=== PATIENT | female | born 1980 | race Caucasian/White ===

== ENCOUNTER → 2024-09-07 14:12 | Outpatient (REF) | payer OTHER, SELFPAY | LOC: WDC 14:12 | PROVIDERS: ATTENDING PHYSICIAN Nurse Practitioner | DX: Z12.31 Encounter for screening mammogram for malignant neoplasm of breast (principal) | CPT/HCPCS: 77063; 77067 ==

== ENCOUNTER → 2024-09-16 09:20 | Outpatient (REF) | payer OTHER, SELFPAY | LOC: WDC 09:20 | PROVIDERS: ATTENDING PHYSICIAN Nurse Practitioner | DX: R92.8 Other abnormal and inconclusive findings on diagnostic imaging of breast (principal) | CPT/HCPCS: 76642 ==

== ENCOUNTER 2025-05-08 19:19 | Emergency (ER) | payer OTHER, SELFPAY ==
[2025-05-08 19:24] VITALS: BP 152/99
[2025-05-08 19:57] LABS: Hematocrit 38.6 % (37.0-47.0); Hemoglobin 13.6 g/dL (12.0-16.0); Mean Corp Hgb Conc. 35.2 g/dL (33.0-37.0); Mean Corpuscular Volume 92.1 fL (81.0-99.0); Nucleated Red Blood Cells % 0 %; Platelet Count 146 10^3/uL (130-400); Red Cell Dist. Width 12.2 % (11.5-14.5)
[2025-05-08 20:14] LABS: HCG, Serum Qualitative Screen Negative
[2025-05-08 20:23] LABS: ALT (SGPT) 19 U/L (0-35); AST (SGOT) 20 U/L (14-36); Albumin 4.6 g/dl (3.5-5.0); Alkaline Phosphatase 49 U/L (38-126); Blood Urea Nitrogen 7 mg/dl (7-17); Calcium 8.9 mg/dl (8.4-10.2); Carbon Dioxide 22 mmol/L (22-30); Chloride 108 mmol/L (98-107); Glucose 101 mg/dl (70-99); Lipase 23 U/L (23-300); Potassium 3.9 mmol/L (3.5-5.1); Sodium 137 mmol/L (135-145); Total Protein 7.1 g/dl (6.3-8.2); eGFR > 60.00
[2025-05-08 20:27] LABS: Troponin I < 0.012 ng/ml
[2025-05-08 22:23] VITALS: BP 129/86; BMI 26.1
[2025-05-08] MEDS: MAALOX 30 PO (23:51)
[2025-05-09] VITALS: BP 136/86
--- NOTE | 2025-05-09 00:21 | ED.GENMED ---
History of Present Illness
General
Chief Complaint: Chest Problem
Source: patient
Exam Limitations: none
Time Seen by Provider: 05/08/25 23:16
Nursing documentation reviewed up to this point in time: agreed with
History of Present Illness
History of Present Illness:
This is a 45-year-old woman with history of GERD, IBS with diarrhea, anxiety. Previous colonoscopy with Dr. Merino November 2018 due to persistent diarrhea. Overall unremarkable. Prescribed a 2-week course of Xifaxan. Patient states her irritable
bowel such as diarrhea has been fairly well-controlled with a few sporadic brief episodes.
Last night however around 2 AM she developed chills, aches along with recurrent diarrhea that continued throughout the night. She also noted nausea with a few episodes of dry heaves. She did take a dose of Compazine with improvement in nausea but
continued with nonbloody diarrhea throughout the night to this morning. With nausea and dry heaves she developed substernal chest pain intermittently sharp and stabbing in nature, intermittently radiating to her back as well as to her jaw. Chest
pain is worse with eating and drinking and patient admits that she has been hesitant to eat anything today, she has been attempting to keep up with her clear liquids. She has not had a fever nor chills.
No close contacts with similar symptoms. No recent antibiotic use.
She was evaluated by her PCP today and was prescribed Prilosec as well as hyoscyamine.
She has continued with chest discomfort, again worse when she swallows, worse with swallowing pills but no choking nor gagging.
Diarrhea has resolved since this morning.
Past History
Past History
ED Past Medical History: GERD, Psychiatric and Other (Cervical disc disease; irritable bowel syndrome)
ED Past Surgical History: , Gynecological (Endometrial ablation), Tonsilectomy and Other (Breast augmentation)
Social History
Tobacco: Non-smoker
Personal:
Living: with family
Employment: Employed
Family History
Family History: Other (Noncontributory)
Phy Exam
Physical Exam
Physical Exam:
GENERAL: 45-year-old woman appears her stated age, bright and alert, pleasant, appears in no acute distress. Accompanied by her .
EYE: anicteric
NECK: Supple, nontender, no meningismus, no significant adenopathy.
ENT: posterior pharynx is clear, oral mucosa is moist. No rhinorrhea.
CARDIAC: Regular rate and rhythm. no murmur.
LUNGS: Clear breath sounds bilaterally, no acute respiratory distress, no wheezes/rales/rhonchi
ABDOMEN: Soft, nondistended, without focal tenderness, no r/g, no cvat. normoactive BS.
NEUROLOGICAL: Alert and oriented x3, no focal neuro deficits. Gait is steady.
SKIN: Warm and dry, normal color, skin intact. No rash.
MUSCULOSKELETAL: No C/C/E. peripheral pulses are full and equal b/l. No palpable tenderness.
PSYCH: Normal and appropriate interaction.
Course
Orders/Labs/Results
Orders:
Orders
05/08/25 19:24
Electrocardiogram (*1) Urgent
Reason for Study: Chest Pain
EKG- Treatment ONCE
05/08/25 19:28
Test Result ONCE
05/08/25 19:47
Complete Blood Count/With Diff Urgent
Comprehensive Metabolic Panel Urgent
HCG, Serum Qualitative Screen Urgent
Lipase Urgent
Troponin I Urgent
05/08/25 23:36
Mag Hydrox/Al Hydrox/Simeth [Maalox] 30 ml Phenobarb/Hyoscy/Atropine/Scop [] 10 ml Viscous Lidocaine 2% [Xylocaine Viscous Cup] 10 ml PO NOW
05/08/25 23:46
Mag Hydrox/Al Hydrox/Simeth [Maalox] 30 ml .ROUTE .STK-MED ONE
Phenobarb/Hyoscy/Atropine/Scop [] 10 ml .ROUTE .STK-MED ONE
Viscous Lidocaine 2% [Xylocaine Viscous Cup] 15 ml .ROUTE .STK-MED ONE
05/09/25 00:21
Sucralfate Suspension [Carafate Suspension] 1 gm PO NOW STA
Abnormal Lab Results
05/08/25
19:47
WBC 3.1 L 10^3/uL
(4.8-10.8)
RBC 4.19 L 10^6/uL
(4.20-5.40)
MCH 32.5 H pg
(27.0-31.0)
MPV 10.6 H fL
(7.4-10.4)
Absolute Lymphs (auto) 0.6 L 10^3/uL
(1.2-3.4)
Lymphocytes % 19.9 L %
(20.5-51.1)
Chloride 108 H mmol/L
(98-107)
Glucose 101 H mg/dl
(70-99)
05/08/25 19:47
05/08/25 19:47
Vital Signs
Initial and Last Documented VS:
Initial Vital Signs
Temp Pulse Resp BP Pulse Ox
98.2 F 95 18 152/99 98
05/08/25 19:24 05/08/25 19:24 05/08/25 19:24 05/08/25 19:24 05/08/25 19:24
Last Documented Vital Signs
Temp Pulse Resp BP Pulse Ox
98.2 F 64 17 122/82 97
05/08/25 19:24 05/09/25 01:15 05/09/25 01:15 05/09/25 01:00 05/09/25 01:15
MDM/Problems Addressed
Differential Diagnosis Includes:
Concern for GERD/esophagitis, gastroenteritis, exacerbation of IBS, less likely ACS. No history of hypertension, symptoms have been intermittent and worse with swallowing thus dissection is unlikely.
EKG is unremarkable/within normal limits.
Labs show mild leukopenia with white blood cell count of 3.1. Chemistries are unremarkable. hCG is negative. Troponin is negative.
For what I suspect is acute exacerbation of acid reflux/esophagitis will trial a GI cocktail and then Carafate.
At this point no indication for imaging.
Chronic conditions affecting care: Other (History of irritable bowel disease-diarrhea, history of GERD)
*Pulse Oximetry
SaO2: 99
Oxygen Mode of Delivery: Room air
Patient hypoxic: no
*EKG
Interpreted by ED Provider?: Yes
Interpretation: normal
Comparison EKG: no comparison EKG present
Rate: normal
Rhythm: sinus
[place]: normal axis
Interval: normal interval
QRS Pattern: normal QRS
Ischemia: no ischemia
*Bias Binding Cutter Interpretation
Rate: normal
Interpretation: normal
Rhythm: sinus
*Critical Care Note
Total Time (30-74mins, 75-104mins- exclusive of procedures): Not Applicable
Update Note
Update Note:
01:00
Patient feeling improved after GI cocktail and Carafate. Improvement in chest discomfort. Continues with intermittent brief twinges but markedly improved.
Recommend continuing omeprazole 40 mg daily and will add short course of Carafate to be taken 4 times daily as needed.
Patient began Xifaxan today and recommend she continue this as well.
Recommend limiting diet to clear liquids over the next 24 hours, slowly advance to soft bland foods as tolerated.
Prompt follow-up with PCP for recheck.
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
Return precautions discussed.
ED Attending Note
-
Portions of this chart may have been created with voice recognition software.� Occasional wrong word or��sound alike� substitutions may have occurred due to the inherent limitations of voice recognition software.
Discharge Plan
Departure
Patient Disposition: Home (Routine Discharge)
Date of Disposition: 05/09/25
Time of Disposition: 01:07
Patient with high blood pressure during this ER visit?: No
Condition: Good
Discharge Problem:
Acute GERD w esophagitis
Instructions: Esophagitis, Acid reflux and GERD in adults
Prescriptions:
New
sucralfate [Carafate] 100 mg/mL suspension
10 ml PO QID PRN (Reason: acid reflux/esophagitis) Qty: 400 0RF
No Action
cetirizine [Zyrtec] 10 mg Tablet
10 mg PO DAILY
Nurtec ODT 75 mg Tablet,Disintegrating
75 mg PO ONCE PRN (Reason: migraines)
alprazolam [Xanax] 0.25 mg Tablet
0.25 mg PO PRN PRN (Reason: anxiety)
Botox Injections
1 dose SC PRN PRN (Reason: migraines)
Medical Marijuana
1 dose inhalation PRN PRN (Reason: anxiety)
Referrals:
Shanon Hendrickson CRNP [Family Provider, Internal Medicine] - Call in 1-3 days for appt
Interventions
Interventions:
*Risk Screen - Suicide Last Done: 05/08/25 19:24
*General Assessment Last Done: 05/08/25 19:24
*Neglect/Abuse Screening Last Done: 05/08/25 19:24
*ED- Fall Risk Assessment Last Done: 05/09/25 01:21
*ED COVID-19 Vaccine History Last Done: 05/09/25 01:21
*Nursing Disposition Last Done: 05/09/25 01:21
ED- Cardiac Assessment Last Done: 05/08/25 22:24
ED- Pulmonary Assessment Last Done: 05/08/25 22:24
Discharge Date and Time
Discharge Date/Time: 05/09/25 01:22
Print Language: GUATEMALAN
[2025-05-09] MEDS: CARAFATE SUSPENSION 1 GM PO (00:45)
[2025-05-09 01:00] VITALS: BP 122/82
== END 2025-05-09 01:22 | disposition home or self-care (01) ==
LOC: EMR 19:19
PROVIDERS: Student in an Organized Health Care Education/Training Program; EMERGENCY PHYSICIAN Emergency Medicine; FAMILY PHYSICIAN Nurse Practitioner
DX: K21.00 Gastro-esophageal reflux disease with esophagitis, without bleeding (principal); K58.9 Irritable bowel syndrome, unspecified
CPT/HCPCS: 99284; 80053; 83690; 84484; 84703; 85025; 93005

== ENCOUNTER → 2025-09-12 13:25 | Outpatient (REF) | payer BC, SELFPAY | LOC: WDC 13:25 | PROVIDERS: ATTENDING PHYSICIAN Internal Medicine; FAMILY PHYSICIAN Nurse Practitioner | DX: Z12.31 Encounter for screening mammogram for malignant neoplasm of breast (principal) | CPT/HCPCS: 77063; 77067 ==